=== PATIENT | male | born 1930 | race Caucasian/White ===

== ENCOUNTER → 2017-10-28 | Outpatient (CLI) | payer OTHER ==
[~2017-10-28] MED LIST: ATENOLOL 50 MG50 M1 PO; HYDROCHLOROTHIA25 M2 PO; LEVOTHROID75 MCG PO; LISINOPRIL2.5 MG PO
== END ==
LOC: RAD 10:30
DX: M48.02 Spinal stenosis, cervical region (principal); M81.8 Other osteoporosis without current pathological fracture; M25.78 Osteophyte, vertebrae

== ENCOUNTER → 2018-03-08 | Outpatient (CLI) | payer OTHER | LOC: RAD 09:35 | DX: M13.872 Other specified arthritis, left ankle and foot (principal); M10.9 Gout, unspecified ==